=== PATIENT | female | born 1950 | race Caucasian/White ===

== ENCOUNTER → 2018-03-18 | Outpatient (CLI) | payer MEDICARE ==
[~2018-03-18] MED LIST: ACET325 PO; ACYC800 PO; ALBU90OI INH; ASCO500 PO; ATOR80 PO; Amaryl2 MG PO; FLUSAL1005 INH; Ferosul325 MG PO; LEVSOD75 PO; LISI20 PO; METO100ER PO; NIFE90ER PO; OMEPRAZOLE MAGN20 MG PO; PIOG30 PO; POTA10T PO; SERT100 PO; SULTRIDS PO
[2018-03-19 14:53] LABS: Stool Occult Bld Immuno 1 Negative (NEGATIVE); Stool Occult Bld Immuno 2 Positive (NEGATIVE)
== END | disposition home or self-care (01) ==
LOC: LAB EV 14:38
PROVIDERS: Internal Medicine Gastroenterology
DX: Z12.11 Encounter for screening for malignant neoplasm of colon (principal); K57.30 Diverticulosis of large intestine without perforation or abscess without bleeding
CPT/HCPCS: 82274

== ENCOUNTER → 2018-07-10 | Outpatient (CLI) | payer MEDICARE | LOC: LAB SHORT 16:12 → LAB 16:12 | DX: R30.0 Dysuria (principal) | CPT/HCPCS: 87086 ==

== ENCOUNTER → 2020-03-03 | Outpatient (CLI) | payer MEDICARE ==
[~2020-03-03] MED LIST changes: +ADALAT CC60 M1 PO; +ASPI81CH PO; +ATOR20 PO; +CALCIUM 600 +1 EA11 PO; +FAMO10 PO; +FISH OIL 1,2001 EAC4 PO; +FLUT1DIS2 INH; +LEVSOD100 PO; +METF500C PO; +METO50ER PO; +Norco 5-325 Ta1 EACH PO; +Prinivil10 MG PO; +THERA-D2000 UNIT PO; +TOPI25 PO; +ZYRTEC10 M2 PO
[2020-03-03 12:48] LABS: Bun/Creatinine Ratio 42.3 (12.0-20.0); Calcium, Blood 9.9 mg/dL (8.5-10.1); Creatinine, Blood 1.11 mg/dL (0.40-1.00); Potassium, Blood 4.6 mmol/L (3.5-5.5); Thyroid Stimulating Hormone 1.24 uIU/mL (0.360-4.800)
== END ==
LOC: LAB EV 11:48 → LAB SHORT 11:48
PROVIDERS: Family Medicine
DX: I12.9 Hypertensive chronic kidney disease with stage 1 through stage 4 chronic kidney disease, or unspecified chronic kidney disease (principal); N18.9 Chronic kidney disease, unspecified; E03.9 Hypothyroidism, unspecified
CPT/HCPCS: 36415; 80048; 84443

== ENCOUNTER → 2020-06-30 | Outpatient (CLI) | payer MEDICARE ==
[2020-06-30 16:50] LABS: BASOPHILS ABSOLUTE AUTO 0.02 K/mm3 (0.00-0.23); BASOPHILS PERCENT AUTO 0 % (0-2); EOSINOPHILS ABSOLUTE AUTO 0.06 K/mm3 (0.00-0.68); EOSINOPHILS PERCENT AUTO 1 % (0-6); Hematocrit 38.2 % (33.0-51.0); Hemoglobin 11.8 g/dL (11.5-16.0); IMMATURE GRAN ABSOLUTE AUTO 0.04 K/mm3 (0.00-0.10); IMMATURE GRAN PERCENT AUTO 1 % (0-1); LYMPHOCYTES ABSOLUTE AUTO 1.29 K/mm3 (0.84-5.20); LYMPHOCYTES PERCENT AUTO 15 % (21-46); MONOCYTES ABSOLUTE AUTO 0.47 K/mm3 (0.16-1.47); MONOCYTES PERCENT AUTO 6 % (4-13); Mean Corpuscular HGB 26.9 pg (26.0-34.0); Mean Corpuscular HGB Conc 30.9 g/dL (31.5-36.5); Mean Corpuscular Volume 87 fL (80-100); Mean Platelet Volume 10.8 fL (9.1-12.4); NEUTROPHILS ABSOLUTE AUTO 6.72 K/mm3 (1.96-9.15); NEUTROPHILS PERCENT AUTO 78 % (41-73); Platelet Count 238 K/mm3 (150-400); RDW Coefficient Variation 17.3 % (11.7-14.2); RDW Standard Deviation 55.3 fL (35.1-46.3); Red Blood Cell Count 4.39 M/mm3 (3.80-5.20)
[2020-06-30 17:04] LABS: Bun/Creatinine Ratio 25.2 (12.0-20.0); Calcium, Blood 9.2 mg/dL (8.5-10.1); Creatinine, Blood 1.51 mg/dL (0.40-1.00); Potassium, Blood 4.5 mmol/L (3.5-5.5)
== END ==
LOC: LAB SHORT 16:44 → LAB EV 16:44
PROVIDERS: Physician Assistant
DX: R53.83 Other fatigue (principal); R53.81 Other malaise; R11.2 Nausea with vomiting, unspecified
CPT/HCPCS: 80048; 85025

== ENCOUNTER 2020-08-04 15:58 | Observation (INO) | payer MEDICARE ==
[~2020-08-04] VITALS: Ht 160 cm; Wt 123.3 kg
[~2020-08-04 15:58] MED LIST changes: -ADALAT CC60 M1 PO; -ASPI81CH PO; -ATOR20 PO; -CALCIUM 600 +1 EA11 PO; -FAMO10 PO; -FISH OIL 1,2001 EAC4 PO; -FLUT1DIS2 INH; -LEVSOD100 PO; -METF500C PO; -METO50ER PO; -Norco 5-325 Ta1 EACH PO; -Prinivil10 MG PO; -THERA-D2000 UNIT PO; -TOPI25 PO; -ZYRTEC10 M2 PO
[2020-08-04 16:35] LABS: BASOPHILS ABSOLUTE AUTO 0.02 K/mm3 (0.00-0.23); BASOPHILS PERCENT AUTO 0 % (0-2); EOSINOPHILS ABSOLUTE AUTO 0.09 K/mm3 (0.00-0.68); EOSINOPHILS PERCENT AUTO 1 % (0-6); Hematocrit 40.1 % (33.0-51.0); Hemoglobin 12.1 g/dL (11.5-16.0); IMMATURE GRAN ABSOLUTE AUTO 0.07 K/mm3 (0.00-0.10); IMMATURE GRAN PERCENT AUTO 1 % (0-1); LYMPHOCYTES ABSOLUTE AUTO 1.34 K/mm3 (0.84-5.20); LYMPHOCYTES PERCENT AUTO 13 % (21-46); MONOCYTES ABSOLUTE AUTO 0.51 K/mm3 (0.16-1.47); MONOCYTES PERCENT AUTO 5 % (4-13); Mean Corpuscular HGB Conc 30.2 g/dL (31.5-36.5); Mean Corpuscular Volume 90 fL (80-100); Mean Platelet Volume 10.9 fL (9.1-12.4); NEUTROPHILS ABSOLUTE AUTO 8.04 K/mm3 (1.96-9.15); NEUTROPHILS PERCENT AUTO 80 % (41-73); Platelet Count 234 K/mm3 (150-400); RDW Coefficient Variation 16.7 % (11.7-14.2); RDW Standard Deviation 54.4 fL (35.1-46.3); Red Blood Cell Count 4.48 M/mm3 (3.80-5.20); White Blood Cell Count 10.07 K/mm3 (4.00-11.30)
[2020-08-04 16:49] LABS: Albumin, Blood 3.6 g/dL (3.4-5.0); Albumin/Globulin Ratio 0.9 (0.8-1.8); Bun/Creatinine Ratio 25.7 (12.0-20.0); Calcium, Blood 9.1 mg/dL (8.5-10.1); Creatinine, Blood 0.97 mg/dL (0.40-1.00); Potassium, Blood 3.9 mmol/L (3.5-5.5); Total Protein, Blood 7.6 g/dL (6.4-8.2)
[2020-08-04 18:14] LABS: Source, Urine Catheter
[2020-08-04 18:17] LABS: Appearance, Urine Hazy (Clear); Bilirubin, Urine Neg (Neg); Blood, Urine 5+ (Neg); Color, Urine Amber (P-Yellow); Glucose Qualitative, Urine Neg (Neg); Ketones, Urine 4+ (Neg); Leukocyte Esterase, Urine 1+ (Neg); Nitrite, Urine Neg (Neg); Protein, Urine 3+ (Neg); Urobilinogen, Urine NORM (Normal)
[2020-08-04 18:26] LABS: Bacteria Many /hpf; Red Blood Cells, Urine TNTC /hpf (0-2); Squamous Epithelial Cells Few /hpf (Few)
[2020-08-04] MEDS ORDERED: THERA-D2000 UNIT PO (18:30)
[2020-08-04] MEDS ORDERED: ALBU90OI INH (18:31)
[2020-08-04] MEDS ORDERED: ADALAT CC60 M1 PO (18:32)
[2020-08-04] MEDS ORDERED: CALCIUM 600 +1 EA11 PO (18:34)
[2020-08-04] MEDS ORDERED: ZYRTEC10 M2 PO (18:34)
[2020-08-04] MEDS ORDERED: Norco 5-325 Ta1 EACH PO (18:34)
[2020-08-04] MEDS ORDERED: ATOR20 PO (18:34)
[2020-08-04] MEDS ORDERED: LEVSOD100 PO (18:34)
[2020-08-04] MEDS ORDERED: FLUT1DIS2 INH (18:34)
[2020-08-04] MEDS ORDERED: Prinivil10 MG PO (18:35)
[2020-08-04] MEDS ORDERED: SERT100 PO (18:35)
[2020-08-04] MEDS ORDERED: ASPI81CH PO (18:35)
[2020-08-04] MEDS ORDERED: FISH OIL 1,2001 EAC4 PO (18:36)
[2020-08-04] MEDS ORDERED: FAMO10 PO (18:36)
[2020-08-04] MEDS ORDERED: TOPI25 PO (18:36)
[2020-08-04] MEDS ORDERED: ASCO500 PO (18:36)
[2020-08-04] MEDS ORDERED: METO50ER PO (18:36)
[2020-08-04] MEDS ORDERED: PIOG30 PO (18:36)
[2020-08-04] MEDS ORDERED: METF500C PO (18:37)
[2020-08-04 21:03] LABS: Thyroid Stimulating Hormone 2.87 uIU/mL (0.360-4.800)
[2020-08-05 05:54] LABS: BASOPHILS ABSOLUTE AUTO 0.03 K/mm3 (0.00-0.23); BASOPHILS PERCENT AUTO 0 % (0-2); EOSINOPHILS ABSOLUTE AUTO 0.22 K/mm3 (0.00-0.68); EOSINOPHILS PERCENT AUTO 3 % (0-6); Hematocrit 34.7 % (33.0-51.0); Hemoglobin 10.6 g/dL (11.5-16.0); IMMATURE GRAN ABSOLUTE AUTO 0.06 K/mm3 (0.00-0.10); IMMATURE GRAN PERCENT AUTO 1 % (0-1); LYMPHOCYTES ABSOLUTE AUTO 1.71 K/mm3 (0.84-5.20); LYMPHOCYTES PERCENT AUTO 20 % (21-46); MONOCYTES ABSOLUTE AUTO 0.61 K/mm3 (0.16-1.47); MONOCYTES PERCENT AUTO 7 % (4-13); Mean Corpuscular HGB Conc 30.5 g/dL (31.5-36.5); Mean Corpuscular Volume 88 fL (80-100); Mean Platelet Volume 11.8 fL (9.1-12.4); NEUTROPHILS ABSOLUTE AUTO 5.84 K/mm3 (1.96-9.15); NEUTROPHILS PERCENT AUTO 69 % (41-73); Platelet Count 217 K/mm3 (150-400); RDW Coefficient Variation 16.8 % (11.7-14.2); RDW Standard Deviation 54.3 fL (35.1-46.3); Red Blood Cell Count 3.93 M/mm3 (3.80-5.20); White Blood Cell Count 8.47 K/mm3 (4.00-11.30)
[2020-08-05 06:19] LABS: Anion Gap 12 mmol/L (6-16); Blood Urea Nitrogen 29 mg/dL (8-24); Bun/Creatinine Ratio 30.1 (12.0-20.0); CO2, Blood 25 mmol/L (21-32); Calcium, Blood 8.7 mg/dL (8.5-10.1); Chloride, Blood 103 mmol/L (98-108); Creatinine, Blood 0.97 mg/dL (0.40-1.00); Glomerular Filtration Rate >60 (60-); Glucose, Blood 111 mg/dL (70-99); Magnesium, Blood 1.8 mg/dL (1.6-2.4); Potassium, Blood 3.3 mmol/L (3.5-5.5); Sodium, Blood 140 mmol/L (136-145)
--- NOTE | 2020-08-05 06:50 | NUR ---
SHIFT SUMMARY PT WAS A NEW ADMIT DURING THE NIGHT, ARRIVING ON THE FLOOR AT 2215. SHE WAS ADMITTED FOR HYPOGLYCEMIA. SHE IS A&O X 4, 1PA TO THE BS. PT REPORTS THAT SHE HAS HAD INCREASED WEAKNESS AT HOME FOR THE PAST 2-3 DAYS, WITH MULTIPLE GLF. PT IS CURRENTLY Q2H BLOOD SUGARS, STABLE THOUGH NOT SUSTAINING ABOVE 100. NO C/O ACUTE PAIN, NAUSEA OR SOB. VITAL SIGNS STABLE. NO ACUTE CHANGES IN PT CONDITION NOTED SINCE ADMISSION. WILL CONTINUE TO MONITOR AND TREAT PER EMAR UNTIL HAND OFF TO DAY SHIFT RN.
[2020-08-05 12:39] LABS: IMMATURE RETIC FRACTION 14.4 % (2.3-16.0); RETIC HGB EQUIVALENT 31.4 pg (28.20-36.60); RETICULOCYTE ABSOLUTE 0.0693 M/mm3 (0.0200-0.1100); RETICULOCYTE COUNT PERCENT 1.8 % (0.50-2.50)
[2020-08-05 12:57] LABS: Percent Saturation 21.3 % (15.0-50.0)
--- NOTE | 2020-08-05 18:43 | NUR ---
SHIFT SUMMARY ANDREA GOT UP IN ROOM WITH AO1 WITH PT. SBA TO BSC. URINE RED, DR PATEL INFORMED. PT DENIES DYSURIA. IVF INITIATED, RENAL ULTRASOUND DONE, CREATININE KINASE ELEVATED AT 1090, DR NOGUEIRA INFORMED. NEW PIV STARTED. CBGS RANGED FROM 71-130, DR PATEL CHANGED TO CBG ACHS. PT AGREEABLE TO GO TO SNF AFTER HOSPITAL. GOT TYLENOL FOR HEADACHE, TOOK PILLS PRESCIBED, CALL LIGHT IN REACH, WCTM
--- NOTE | 2020-08-06 06:49 | NUR ---
SHIFT SUMMARY PT IS A 70 Y/O FEMALE, ADMITTED FOR HYPOGLYCEMIA. SHE IS A&O X 4, SBA TO THE [facility]. PT IS RECEIVING NS @ 75 ML/HR, AND WAS UP FREQUENTLY DURING THE NIGHT TO URINATE. PT DID C/O MILD R FLANK PAIN, BUT DID NOT REQUIRE PAIN MEDS. NO C/O NAUSEA OR SOB. VITAL SIGNS STABLE. NO ACUTE CHANGES IN PT CONDITION NOTED DURING THE NIGHT. WILL CONTINUE TO MONITOR AND TREAT PER EMAR UNTIL HAND OFF TO DAY SHIFT RN.
[2020-08-06 08:24] LABS: BASOPHILS ABSOLUTE AUTO 0.02 K/mm3 (0.00-0.23); BASOPHILS PERCENT AUTO 0 % (0-2); EOSINOPHILS ABSOLUTE AUTO 0.22 K/mm3 (0.00-0.68); EOSINOPHILS PERCENT AUTO 3 % (0-6); Hematocrit 36.8 % (33.0-51.0); Hemoglobin 11.5 g/dL (11.5-16.0); IMMATURE GRAN ABSOLUTE AUTO 0.05 K/mm3 (0.00-0.10); IMMATURE GRAN PERCENT AUTO 1 % (0-1); LYMPHOCYTES ABSOLUTE AUTO 1.66 K/mm3 (0.84-5.20); LYMPHOCYTES PERCENT AUTO 26 % (21-46); MONOCYTES ABSOLUTE AUTO 0.42 K/mm3 (0.16-1.47); MONOCYTES PERCENT AUTO 7 % (4-13); Mean Corpuscular HGB 27.5 pg (26.0-34.0); Mean Corpuscular HGB Conc 31.3 g/dL (31.5-36.5); Mean Corpuscular Volume 88 fL (80-100); Mean Platelet Volume 11.2 fL (9.1-12.4); NEUTROPHILS ABSOLUTE AUTO 4.12 K/mm3 (1.96-9.15); NEUTROPHILS PERCENT AUTO 63 % (41-73); Platelet Count 223 K/mm3 (150-400); RDW Coefficient Variation 16.7 % (11.7-14.2); RDW Standard Deviation 53.6 fL (35.1-46.3); Red Blood Cell Count 4.18 M/mm3 (3.80-5.20); White Blood Cell Count 6.49 K/mm3 (4.00-11.30)
[2020-08-06 08:40] LABS: Anion Gap 6 mmol/L (6-16); Blood Urea Nitrogen 20 mg/dL (8-24); Bun/Creatinine Ratio 22.8 (12.0-20.0); CO2, Blood 27 mmol/L (21-32); Calcium, Blood 8.9 mg/dL (8.5-10.1); Chloride, Blood 108 mmol/L (98-108); Creatinine, Blood 0.88 mg/dL (0.40-1.00); Glomerular Filtration Rate >60 (60-); Glucose, Blood 95 mg/dL (70-99); Potassium, Blood 3.9 mmol/L (3.5-5.5); Sodium, Blood 141 mmol/L (136-145)
[2020-08-06 16:44] LABS: Albumin/Globulin Ratio 0.8 (0.8-1.8); Bilirubin, Direct 0.1 mg/dL (0.0-0.3); Bilirubin, Indirect 0.3 mg/dL (0.1-0.7); Bilirubin, Total 0.4 mg/dL (0.1-1.0); Globulin, Blood 3.6 g/dL (2.2-4.0); Total Protein, Blood 6.6 g/dL (6.4-8.2)
--- NOTE | 2020-08-06 18:44 | NUR ---
SHIFT SUMMARY ANDREA STARTED COMPLAINING OF SEVERE L SIDE FLANK PAIN RADIATING TO HER FRONT, NAUSEOUS, DRY HEAVES. CT OF ABD SHOWED OBSTRUCTION IN URETER, SEVERE HYDRONEPHROSIS. DR PATEL INFORMED OF RESULTS, AWAITING UPDATE. UP TO BSC WITH SBA. BROTHER VISITED. MIVF RUNNING. BLADDER SCAN PVR SHOWED 0ML IN BLADDER. CALL LIGHT IN REACH, WCTM
--- NOTE | 2020-08-06 19:00 | NUR ---
DR PATEL TO BS, PT NEEDING TO TRANSFER TO [facility], PT AWARE
--- NOTE | 2020-08-06 20:42 | NUR ---
COBRA TRANSFER PT WAS TRANSFERED TO [facility] FOR R OBSTRUCTING KIDNEY STONE WITH HYDRONEPHROSIS. REPORT GIVEN TO LINETTE WU FOR ROOM 8135. PT WAS MEDICATED WITH OT DOSE OF 0.5 MG IV DILAUDID FOR FLANK PAIN PRIOR TO TRANSFER PER HOSPITALIST FLORESITA KNOTT. PT LEFT VIA AMBULANCE AT 2030.
== END 2020-08-06 20:29 | disposition short-term general hospital (02) ==
LOC: ER 15:58 → MEDS 20:51 → ERHOLD 20:51 → MEDS 22:37
PROVIDERS: Internal Medicine; Nurse Practitioner Acute Care; Physician Assistant; ADMIT Family Medicine
DX: E11.649 Type 2 diabetes mellitus with hypoglycemia without coma (principal); E11.22 Type 2 diabetes mellitus with diabetic chronic kidney disease; I12.9 Hypertensive chronic kidney disease with stage 1 through stage 4 chronic kidney disease, or unspecified chronic kidney disease; N18.30 Chronic kidney disease, stage 3 unspecified; D50.9 Iron deficiency anemia, unspecified; N13.2 Hydronephrosis with renal and ureteral calculous obstruction; R53.1 Weakness; F32.9 Major depressive disorder, single episode, unspecified; K21.9 Gastro-esophageal reflux disease without esophagitis; E87.6 Hypokalemia; E03.9 Hypothyroidism, unspecified; E66.01 Morbid (severe) obesity due to excess calories; J44.9 Chronic obstructive pulmonary disease, unspecified; E78.5 Hyperlipidemia, unspecified; Z87.891 Personal history of nicotine dependence; Z74.09 Other reduced mobility; Z68.42 Body mass index [BMI] 45.0-49.9, adult
CPT/HCPCS: 36415; 74177; 76770; 80048; 80053; 80076; 81001; 82550; 82607; 82728; 82746; 82947; 83540; 83550; 83690; 83735; 84443; 85025; 85045; 87086; 93005; 93010; 94640; 94760; 96372; 97110; 97162; 97530; 99285-25; A9270; G0378; J1170; J1650; J2270; J2405; J7030; Q9967

== ENCOUNTER 2023-03-03 07:54 | Day surgery (SDC) | payer MEDICARE ==
[~2023-03-03] VITALS: Ht 157.5 cm; Wt 125.0 kg
[~2023-03-03 07:54] MED LIST changes: +ADALAT CC60 M1 PO; +ASPI81CH PO; +ATOR20 PO; +Aldactone25 MG PO; +CALCIUM 600 +1 EA11 PO; +FAMO10 PO; +FISH OIL 1,2001 EAC4 PO; +FLUT1DIS2 INH; +LEVSOD100 PO; +METF500C PO; +METO50ER PO; +Norco 5-325 Ta1 EACH PO; +POTCIT10 PO; +Prinivil10 MG PO; +THERA-D2000 UNIT PO; +TOPI25 PO; +ZYRTEC10 M2 PO
[2023-03-03] MEDS ORDERED: CODACE30 (08:51)
[2023-03-03] MEDS ORDERED: FAMO20 (08:53)
[2023-03-03] MEDS ORDERED: CETI5 (08:53)
[2023-03-03] MEDS ORDERED: LOSA25 (08:54)
[2023-03-03] MEDS ORDERED: IRON18 MG (08:54)
[2023-03-03] MEDS ORDERED: FURO40 (08:54)
[2023-03-03] MEDS ORDERED: ZINC15 (08:54)
[2023-03-03] MEDS ORDERED: MONT10T (08:54)
[2023-03-03] MEDS ORDERED: GLUC500 (08:54)
[2023-03-03 11:13] VITALS: BP 115/65
== END 2023-03-03 11:13 | disposition home or self-care (01) ==
LOC: ORSCSDS 07:54 → ORD 10:00 → ORSCSDS 10:00 → ORD 10:15 → ORSCSDS 10:15
PROVIDERS: Internal Medicine Gastroenterology
PROC: 0DBM8ZX Excision of Descending Colon, Via Natural or Artificial Opening Endoscopic, Diagnostic (ICD-10-PCS; principal; 2023-03-03 10:00)
DX: Z12.11 Encounter for screening for malignant neoplasm of colon (principal); D12.4 Benign neoplasm of descending colon; K57.30 Diverticulosis of large intestine without perforation or abscess without bleeding; J44.9 Chronic obstructive pulmonary disease, unspecified; G47.30 Sleep apnea, unspecified; E11.22 Type 2 diabetes mellitus with diabetic chronic kidney disease; I12.9 Hypertensive chronic kidney disease with stage 1 through stage 4 chronic kidney disease, or unspecified chronic kidney disease; N18.30 Chronic kidney disease, stage 3 unspecified; Z87.891 Personal history of nicotine dependence; Z79.82 Long term (current) use of aspirin; Z79.84 Long term (current) use of oral hypoglycemic drugs; Z79.899 Other long term (current) drug therapy
CPT/HCPCS: 82947; 88305; J2704; J7120

== ENCOUNTER → 2023-05-19 | Outpatient (CLI) | payer MEDICARE, OTHER ==
[~2023-05-19] MED LIST changes: +CETI5; +CODACE30; +FAMO20; +FURO40; +GLUC500; +IRON18 MG; +LOSA25; +MONT10T; +ZINC15
[2023-05-19 09:52] LABS: BASOPHILS ABSOLUTE AUTO 0.02 K/mm3 (0.00-0.23); BASOPHILS PERCENT AUTO 0 % (0-2); EOSINOPHILS ABSOLUTE AUTO 0.14 K/mm3 (0.00-0.68); EOSINOPHILS PERCENT AUTO 2 % (0-6); Hematocrit 36.4 % (33.0-51.0); Hemoglobin 11.1 g/dL (11.5-16.0); IMMATURE GRAN ABSOLUTE AUTO 0.02 K/mm3 (0.00-0.10); IMMATURE GRAN PERCENT AUTO 0 % (0-1); LYMPHOCYTES ABSOLUTE AUTO 1.07 K/mm3 (0.84-5.20); LYMPHOCYTES PERCENT AUTO 19 % (21-46); MONOCYTES ABSOLUTE AUTO 0.34 K/mm3 (0.16-1.47); MONOCYTES PERCENT AUTO 6 % (4-13); Mean Corpuscular HGB 27.7 pg (26.0-34.0); Mean Corpuscular HGB Conc 30.5 g/dL (31.5-36.5); Mean Corpuscular Volume 91 fL (80-100); Mean Platelet Volume 11.3 fL (9.1-12.4); NEUTROPHILS ABSOLUTE AUTO 4.15 K/mm3 (1.96-9.15); NEUTROPHILS PERCENT AUTO 73 % (41-73); Platelet Count 149 K/mm3 (150-400); RDW Coefficient Variation 15.1 % (11.7-14.2); RDW Standard Deviation 49.4 fL (35.1-46.3); Red Blood Cell Count 4.01 M/mm3 (3.80-5.20); White Blood Cell Count 5.74 K/mm3 (4.00-11.30)
[2023-05-19 10:01] LABS: Albumin, Blood 3.5 g/dL (3.4-5.0); Albumin/Globulin Ratio 0.9 (0.8-1.8); Bilirubin, Total 0.8 mg/dL (0.1-1.0); Bun/Creatinine Ratio 26.2 (12.0-20.0); Calcium, Blood 8.7 mg/dL (8.5-10.1); Creatinine, Blood 1.22 mg/dL (0.40-1.00); Globulin, Blood 4.1 g/dL (2.2-4.0); Potassium, Blood 4.5 mmol/L (3.5-5.5); Total Protein, Blood 7.6 g/dL (6.4-8.2)
== END ==
LOC: LAB 09:47 → LAB SHORT 09:47
PROVIDERS: Physician Assistant Medical
DX: R10.30 Lower abdominal pain, unspecified (principal)
CPT/HCPCS: 80053; 85025

== ENCOUNTER → 2023-11-13 | Outpatient (CLI) | payer MEDICARE, OTHER ==
[2023-11-19 12:25] LABS: CALCIUM, URINE - PER 24H 64 mg/d (100-250); CALCIUM, URINE - PER VOLUME 5.8 mg/dL; CHLORIDE, URINE - PER 24H 172 mmol/d (140-250); CHLORIDE, URINE - PER VOLUME 156 mmol/L; CITRIC ACID, URINE - PER 24H 118 mg/d (320-1240); CITRIC ACID,URINE - PER VOLUME 107 mg/L; CREATININE, URINE - PER 24H 847 mg/d (500-1400); CREATININE, URINE - PER VOLUME 77 mg/dL; HOURS COLLECTED 24 hr; MAGNESIUM, URINE - PER VOLUME 6.6 mg/dL; MAGNESIUM, URINE PER 24H 73 mg/d (12-199); OXALATE, URINE - PER 24H 25 mg/d (13-40); OXALATE, URINE - PER VOLUME 23 mg/L; PH, URINE 5.67 (5.00-7.50); PHOSPHORUS, URINE - PER 24H 374 mg/d (400-1300); PHOSPHORUS, URINE - PER VOLUME 34 mg/dL; POTASSIUM, URINE - PER 24H 43 mmol/d (25-125); POTASSIUM, URINE - PER VOLUME 39 mmol/L; SODIUM, URINE - PER 24H 167 mmol/d (51-286); SODIUM, URINE - PER VOLUME 152 mmol/L; SULFATE, URINE - PER 24H 10 mmol/d (6-30); SULFATE, URINE - PER VOLUME 9 mmol/L; TOTAL VOLUME 1100 mL; URIC ACID, URINE - PER 24H 312 mg/d (250-750); URIC ACID, URINE - PER VOLUME 28.4 mg/dL; URINE SUPERSATURATION INTERP Normal; URINE SUPERSATURATION, CAHPO4 0.34; URINE SUPERSATURATION, CAOX 3.62; URINE SUPERSATURATION, UA CALC 0.75
== END | disposition home or self-care (01) ==
LOC: LAB SHORT 07:30 → LAB 07:30
PROVIDERS: Urology
DX: N20.0 Calculus of kidney (principal)
CPT/HCPCS: 81003; 82131; 82140; 82340; 82436; 82507; 82570; 83735; 83935; 83945; 84105; 84133; 84300; 84392; 84560

== ENCOUNTER → 2024-04-15 | Outpatient (CLI) | payer MEDICARE, OTHER ==
[2024-04-22 10:27] LABS: CALCIUM, URINE - PER 24H 28 mg/d (100-250); CALCIUM, URINE - PER VOLUME 1.1 mg/dL; CHLORIDE, URINE - PER 24H 275 mmol/d (140-250); CHLORIDE, URINE - PER VOLUME 110 mmol/L; CITRIC ACID, URINE - PER 24H 220 mg/d (320-1240); CITRIC ACID,URINE - PER VOLUME 88 mg/L; CREATININE, URINE - PER 24H 850 mg/d (500-1400); CREATININE, URINE - PER VOLUME 34 mg/dL; HOURS COLLECTED 24 hr; MAGNESIUM, URINE - PER VOLUME 3.3 mg/dL; MAGNESIUM, URINE PER 24H 82 mg/d (12-199); OXALATE, URINE - PER 24H 40 mg/d (13-40); OXALATE, URINE - PER VOLUME 16 mg/L; PH, URINE 7.36 (5.00-7.50); PHOSPHORUS, URINE - PER 24H 800 mg/d (400-1300); PHOSPHORUS, URINE - PER VOLUME 32 mg/dL; POTASSIUM, URINE - PER 24H 70 mmol/d (25-125); POTASSIUM, URINE - PER VOLUME 28 mmol/L; SODIUM, URINE - PER 24H 322 mmol/d (51-286); SODIUM, URINE - PER VOLUME 129 mmol/L; SULFATE, URINE - PER 24H < 5 mmol/d (6-30); SULFATE, URINE - PER VOLUME <5 mmol/L; TOTAL VOLUME 2500 mL; URIC ACID, URINE - PER 24H 510 mg/d (250-750); URIC ACID, URINE - PER VOLUME 20.4 mg/dL; URINE SUPERSATURATION INTERP Normal; URINE SUPERSATURATION, CAHPO4 0.46; URINE SUPERSATURATION, CAOX 0.63; URINE SUPERSATURATION, UA CALC 0.02
== END | disposition home or self-care (01) ==
LOC: LAB 07:00 → LAB SHORT 07:00 → LAB FUT 03-22 13:05
PROVIDERS: Nurse Practitioner Acute Care
DX: N20.0 Calculus of kidney (principal)
CPT/HCPCS: 81003; 82131; 82140; 82340; 82436; 82507; 82570; 83735; 83935; 83945; 84105; 84133; 84300; 84392; 84560

== ENCOUNTER 2024-09-21 09:07 | Inpatient (IN) | payer MEDICARE, OTHER ==
[~2024-09-21] VITALS: Ht 160 cm; Wt 123.4 kg
[~2024-09-21 09:07] MED LIST changes: -CODACE30; +CODACE30 PO; -FAMO20; +FAMO20 PO; -FURO40; +FURO40 PO
[2024-09-21 10:58] LABS: BASOPHILS ABSOLUTE AUTO 0.03 K/mm3 (0.00-0.23); BASOPHILS PERCENT AUTO 0 % (0-2); EOSINOPHILS ABSOLUTE AUTO 0.08 K/mm3 (0.00-0.68); EOSINOPHILS PERCENT AUTO 1 % (0-6); Hematocrit 40.6 % (33.0-51.0); IMMATURE GRAN ABSOLUTE AUTO 0.04 K/mm3 (0.00-0.10); IMMATURE GRAN PERCENT AUTO 1 % (0-1); LYMPHOCYTES ABSOLUTE AUTO 0.95 K/mm3 (0.84-5.20); LYMPHOCYTES PERCENT AUTO 11 % (21-46); MONOCYTES ABSOLUTE AUTO 0.47 K/mm3 (0.16-1.47); MONOCYTES PERCENT AUTO 5 % (4-13); Mean Corpuscular HGB 28.2 pg (26.0-34.0); Mean Corpuscular Volume 88 fL (80-100); NEUTROPHILS ABSOLUTE AUTO 7.26 K/mm3 (1.96-9.15); NEUTROPHILS PERCENT AUTO 82 % (41-73); Platelet Count 205 K/mm3 (150-400); RDW Coefficient Variation 15.2 % (11.7-14.2); RDW Standard Deviation 48.7 fL (35.1-46.3); Red Blood Cell Count 4.61 M/mm3 (3.80-5.20); White Blood Cell Count 8.83 K/mm3 (4.00-11.30)
[2024-09-21 11:05] LABS: Source, Urine Clean Catch
[2024-09-21] MEDS ORDERED: Ipratropium/Albuterol SulF 2.5-0.5MG/3 ML Amp INH ONE (11:10)
[2024-09-21 11:11] LABS: Appearance, Urine Clear (Clear); Bilirubin, Urine Neg (Neg); Blood, Urine Neg (Neg); Color, Urine Yellow (P-Yellow); Glucose Qualitative, Urine Neg (Neg); Ketones, Urine Neg (Neg); Leukocyte Esterase, Urine Neg (Neg); Nitrite, Urine Neg (Neg); Protein, Urine 1+ (Neg); Specific Gravity, Urine 1.015 (1.003-1.022); Urobilinogen, Urine NORM (Normal)
[2024-09-21 11:20] LABS: Albumin, Blood 3.8 g/dL (3.4-5.0); Albumin/Globulin Ratio 0.9 (0.8-1.8); Bilirubin, Total 1.2 mg/dL (0.1-1.0); Bun/Creatinine Ratio 21.4 (12.0-20.0); Calcium, Blood 9.3 mg/dL (8.5-10.1); Creatinine, Blood 1.31 mg/dL (0.40-1.00); Globulin, Blood 4.2 g/dL (2.2-4.0); Potassium, Blood 3.9 mmol/L (3.5-5.5)
[2024-09-21] MEDS ORDERED: Aspirin 325 MG Tab PO ONE ×2 (11:50→14:40)
[2024-09-21 15:55] LABS: Anti-Xa UFH, PHA Monitoring <0.10 IU/mL; International Normalized Ratio 1.11; Prothrombin Time Results 12.1 Sec (9.7-11.5)
[2024-09-21] MEDS ORDERED: Dose Adjust by Pharmacy XX STA ×2 (16:00→17:41)
[2024-09-21] MEDS ORDERED: Heparin Sodium,Porcine/0.5 NS 500 ML IV SCH (16:05)
[2024-09-21] MEDS ORDERED: Heparin Sodium 5000 Units/ML 1ML MDV IV ONE ×2 (16:05→17:45)
[2024-09-21 16:09] LABS: CHOL/HDL RATIO 2.1; Cholesterol 125 mg/dL (50-200); HDL Cholesterol 60 mg/dL (>39); LDL/HDL RATIO 0.9; Low Density Lipoprotein Chol 52 mg/dL (0-110); Triglycerides 63 mg/dL (30-160); Very Low Density Lipoprot Chol 12 mg/dL (6-32)
[2024-09-21] MEDS ORDERED: Insulin Regular 100 UNIT/ML 10ML Vial SC SCH (16:30)
[2024-09-21 17:16] LABS: Influenza A, PCR NEGATIVE (NEGATIVE); Influenza B, PCR NEGATIVE (NEGATIVE); Resp Syncytial Virus, PCR NEGATIVE (NEGATIVE); SARS-Cov-2 (COVID-19) PCR, MMC NEGATIVE (NEGATIVE)
[2024-09-21 18:19] VITALS: BP 99/67
[2024-09-21] MEDS ORDERED: ACYC800 PO (18:43)
[2024-09-21] MEDS ORDERED: METO25ER PO (18:46)
[2024-09-21] MEDS ORDERED: HAIR, SKIN AND1 EAC3 PO (18:51)
[2024-09-21] MEDS ORDERED: MULVITA PO (18:52)
--- NOTE | 2024-09-21 18:54 | NUR ---
BEFORE ARRIVING TO THE UNIT: ABOUT 1720, THIS RN BEGAN TO LOOK UP THE PT TO ADMIT TO PCU. WHEN REVIEWING THE PT'S CHART THIS RN NOTICED THAT A HEPARIN GTT WAS STARTED ON THE PT IN THE ER, BUT THE BOLUS DOSE TO BE GIVEN WITH THE HEPARIN INF WAS NOT GIVEN. ALSO, THIS RN SAW AN ELEVATED D-DIMER OF 8.3 AND TROP OF 813 W/ NO ADDITONAL ORDERS TO TREND OR NOTES/ORDERS ADRESSING THE D-DIMER (TROP HAD NOT PEAKED). AFTER SEEING THIS, THIS RN CALLED THE ER NURSE RAUL HANNAH. THE NURSE STATED THAT SHE DID NOT KNOW ABOUT THE D-DIMER AND IT WAS NOT ADDRESSED. ALSO, THIS RN TOLD THE ER NURSE THAT THE BOLUS DOSE OF HEPARIN WAS NOT GIVEN TO THE PT WHEN THE GTT WAS STARTED. ORIGINAL HEPARIN BOLUS ORDERED FOR 160. THE ER NURSE WAS NOT AWARE OF THE BOLUS DOSE, THIS RN TOLD THE ER NURSE TO CALL PHARMACY ABOUT THE BOLUS DOSE BEORE THEY GIVE IT. WHILE THE ER NURSE WAS CALLING PHARMACY, THIS RN CALLED DR. CH ABOUT THE D-DIMER AND TROP . CT-PE STUDY ORDERED AND TROP ORDERED FOR 1900. CT-PE STUDY COMPLETED BEFORE PT ARRIVING TO THE UNIT. PT ADMISSION: PT ARRIVED VIA [facility] WITH HEPARIN GTT INFUSING ABOUT 1815 THE PT WAS ABLE TO TRANSFER HERSELF FROM [facility] TO BED WITH MINIMAL ASSISTANCE.PLAN TO TRADE ER PUMP FOR PCU PUMP SINCE HEPARIN WAS INFUSING. WHILE THE PT WAS TRANSFERING, THE ER NURSE MILADIS FORGOT ABOUT HE PLAN TO TRADE PUMPS, MILADIS SUE TOOK THE PT'S HEPARIN GTT TUBING OUT OF THE ER PUMP AND HANDED IT OVER OT THIS RN TO PLACE IN THE PCU PUMP. WHEN THIS RN RECIEVED THE TUBING, THIS RN IMMEDIATELY NOTICED THE TUBING WAS UNCLAMPED AND THE PT WAS RECIEVING THE HEPARIN VIA GRAVITY. THIS RN IMEDIATELY CLAMPED THE TUBING AND PROGRAMED IT INTO THE PUMP PER PHARMACY ORDERS W/ FRANCHESCA F RN TO VERIFY THE PUMP. AFTER SETTLING THE PT AND GETTING VITALS, THIS RN CALLED PHARMACY AND NOTIFIED THEM OF WHAT HAPPENED AND THAT THE HEPARIN WAS RUNNING PER GRAVITY FOR AN UNDETERMINAL AMOUNT OF TIME. DR. CH AND BINDERY WORKER'S INFORMED WELL. WHILE AT THE DESK AND TALKING TO PHARMACY, THE RADIOLOGIST CALLED AND NOTIFIED THIS RN OF ABNORMAL ECHO. BINDERY WORKER JERARDO CALLED DR. YANG WITH RESULTS, AND THIS RN CALLED DR. CH. PT WILL BE NPO AT 0000. ON TELE SHE IS SR AND BP IS SOFT BUT STABLE. SHE IS ON RA W/ SP02 >93%. THE PT STATES SHE SHE HAS BEEN HAVING TWO WEEKS OF SOB, LEG SWELLIING, AND BACK PAIN PRIOR TO COMING INTO THE ED. HER SON IS AT BEDSIDE AND WAS UPDATED ON CARE. CARE HANDED OFF TO MAVERICK SUE.
[2024-09-21 20:52] VITALS: BP 124/50
[2024-09-21] MEDS ORDERED: Montelukast Sodium 10 MG Tab PO SCH (22:00)
[2024-09-21] MEDS ORDERED: Loratadine 10 MG Tab PO SCH (22:15)
[2024-09-21 23:32] VITALS: BP 154/79
[2024-09-22 00:36] LABS: BASOPHILS ABSOLUTE AUTO 0.02 K/mm3 (0.00-0.23); BASOPHILS PERCENT AUTO 0 % (0-2); EOSINOPHILS ABSOLUTE AUTO 0.12 K/mm3 (0.00-0.68); EOSINOPHILS PERCENT AUTO 2 % (0-6); Hematocrit 36.7 % (33.0-51.0); Hemoglobin 11.5 g/dL (11.5-16.0); IMMATURE GRAN ABSOLUTE AUTO 0.03 K/mm3 (0.00-0.10); IMMATURE GRAN PERCENT AUTO 0 % (0-1); LYMPHOCYTES ABSOLUTE AUTO 1.45 K/mm3 (0.84-5.20); LYMPHOCYTES PERCENT AUTO 21 % (21-46); MONOCYTES ABSOLUTE AUTO 0.42 K/mm3 (0.16-1.47); MONOCYTES PERCENT AUTO 6 % (4-13); Mean Corpuscular HGB 27.9 pg (26.0-34.0); Mean Corpuscular HGB Conc 31.3 g/dL (31.5-36.5); Mean Corpuscular Volume 89 fL (80-100); Mean Platelet Volume 10.7 fL (9.1-12.4); NEUTROPHILS ABSOLUTE AUTO 4.93 K/mm3 (1.96-9.15); NEUTROPHILS PERCENT AUTO 71 % (41-73); Platelet Count 176 K/mm3 (150-400); RDW Coefficient Variation 15.4 % (11.7-14.2); RDW Standard Deviation 49.7 fL (35.1-46.3); Red Blood Cell Count 4.12 M/mm3 (3.80-5.20); White Blood Cell Count 6.97 K/mm3 (4.00-11.30)
[2024-09-22] MEDS ORDERED: Dose Adjust by Pharmacy XX STA (01:43)
[2024-09-22 01:44] LABS: Bun/Creatinine Ratio 25.2 (12.0-20.0); Calcium, Blood 8.2 mg/dL (8.5-10.1); Creatinine, Blood 1.23 mg/dL (0.40-1.00); Potassium, Blood 3.7 mmol/L (3.5-5.5)
[2024-09-22 03:40] VITALS: BP 142/92
--- NOTE | 2024-09-22 05:13 | NUR ---
SHIFT SUMMARY PT AX0 X 4. PT REQUIRED 2L NC OVERNIGHT. PT HAS HX OF SLEEP APNEA BUT DOES NOT WEAR A CPAP/BIPAP. PT WITH ADEQUATE URINE OUTPUT. PT HR 70S IN SR. PT DENIES C/P. VSS. CALL MCCANN IN REACH AND PT ABLE TO MAKE NEEDS KNOWN.
[2024-09-22 07:42] VITALS: BP 119/66
[2024-09-22] MEDS ORDERED: Loratadine 10 MG Tab PO SCH (09:00)
[2024-09-22] MEDS ORDERED: Atorvastatin 40 MG Tab PO SCH (09:00)
[2024-09-22] MEDS ORDERED: Aspirin 81 MG Chew PO SCH (09:00)
--- NOTE | 2024-09-22 10:04 | NUR ---
CALLED TO SPEAK WITH DR. HEIN TO TOUCH BASE REGARDING POSSIBLE IVC FILTER PLACEMENT. PER DR. HEIN, NO NEED FOR IVC FILTER AT THIS TIME GIVEN WE DO NOT DEFINITIVELY KNOW WHETHER OR NOT PT HAS DVTs. OKAY FOR PT TO EAT. CALLED DR. CH WHO ORDERED DUPLEX OF LEGS TO ASSESS FOR POSSIBLE DVTs AND TO ALLOW PT TO EAT ON CARDIAC DIET. ORDERS INPUT. CONTINUING TO MONITOR.
[2024-09-22 11:59] VITALS: BP 118/57
[2024-09-22] MEDS ORDERED: Formoterol/Mometasone MDI 5/100 mcg 13 GM INH SCH (15:20)
[2024-09-22] MEDS ORDERED: Albuterol 2.5 MG/3 ML VIAL INH PRN (15:20)
[2024-09-22 15:39] VITALS: BP 136/79
--- NOTE | 2024-09-22 17:10 | NUR ---
SHIFT SUMMARY. SHIFT HAS BEEN UNREMARKABLE. PT AOX4, PLEASANT, COOPERATIVE WITH CARE, ABLE TO MAKE NEEDS KNOWN. HAS DENIED PAIN THROUGHOUT SHIFT. VITALS HAVE BEEN STABLE. RUNNING SINUS ON TELE. O2 DEMANDS HAVE FLUCTUATED BETWEEN ROOM AIR AND 3 L O2 THROUGHOUT SHIFT. DENIES SHORTNESS OF BREATH OUTSIDE OF DYSPNEA WITH EXERTION. ECHO AND BLE DOPPLER COMPLETED THIS MORNING. HEPARIN HAS BEEN RUNNING THROUGHOUT SHIFT, RATE CONSISTENT. PT ON HEART HEALTHY DIET. SHIFT OTHERWISE UNREMARKABLE. BED LOCKED IN LOWEST POSITION. CALL LIGHT LEFT WTIHIN REACH. CONTINUING TO MONITOR.
[2024-09-22 19:58] VITALS: BP 114/54
[2024-09-22] MEDS ORDERED: HyDROXyzine HCl 25 MG Tab PO PRN (20:15)
[2024-09-22] MEDS ORDERED: CETIRIZINE 10 MG PO SCH (21:00)
[2024-09-22] MEDS ORDERED: Multivitamins 1 Tab PO SCH (21:00)
[2024-09-22 23:24] VITALS: BP 120/59
[2024-09-23 03:06] LABS: BASOPHILS ABSOLUTE AUTO 0.03 K/mm3 (0.00-0.23); BASOPHILS PERCENT AUTO 0 % (0-2); EOSINOPHILS ABSOLUTE AUTO 0.24 K/mm3 (0.00-0.68); EOSINOPHILS PERCENT AUTO 3 % (0-6); Hematocrit 35.8 % (33.0-51.0); IMMATURE GRAN ABSOLUTE AUTO 0.03 K/mm3 (0.00-0.10); IMMATURE GRAN PERCENT AUTO 0 % (0-1); LYMPHOCYTES PERCENT AUTO 20 % (21-46); MONOCYTES ABSOLUTE AUTO 0.46 K/mm3 (0.16-1.47); MONOCYTES PERCENT AUTO 7 % (4-13); Mean Corpuscular HGB 27.6 pg (26.0-34.0); Mean Corpuscular HGB Conc 30.7 g/dL (31.5-36.5); Mean Corpuscular Volume 90 fL (80-100); Mean Platelet Volume 10.9 fL (9.1-12.4); NEUTROPHILS ABSOLUTE AUTO 4.84 K/mm3 (1.96-9.15); NEUTROPHILS PERCENT AUTO 69 % (41-73); Platelet Count 169 K/mm3 (150-400); RDW Coefficient Variation 15.3 % (11.7-14.2); RDW Standard Deviation 50.6 fL (35.1-46.3); Red Blood Cell Count 3.98 M/mm3 (3.80-5.20)
[2024-09-23 03:20] LABS: Bun/Creatinine Ratio 23.1 (12.0-20.0); Calcium, Blood 8.1 mg/dL (8.5-10.1); Creatinine, Blood 1.21 mg/dL (0.40-1.00); Potassium, Blood 3.7 mmol/L (3.5-5.5)
[2024-09-23 03:30] VITALS: BP 125/66
[2024-09-23] MEDS ORDERED: Dose Adjust by Pharmacy XX STA (03:34)
--- NOTE | 2024-09-23 05:24 | NUR ---
SHIFT SUMMARY PT DID WELL OVERNIGHT. AXO X 4. DENIES PAIN. HEPARIN GTT INFUSING AT THERAPEUTIC RATE. ADEQUATE URINE OUTPUT. PT MAINTAINS O2 SATS ABOVE 90% ON 2.5L NC. PT DENIES SOB WITH AMBULATION. PT SINS RYHTHM WITH BBB HR 70S. DENIES C/P. PT UP WITH 1 ASSIST. PT ABLE TO MAKE NEEDS KNOWN. CALL MCCANN WITHIN REACH.
[2024-09-23] MEDS ORDERED: Levothyroxine Sodium 0.1 MG Tab PO SCH (06:00)
[2024-09-23 08:12] VITALS: BP 127/56
[2024-09-23] MEDS ORDERED: Sertraline HCl 100 MG Tab PO SCH (09:00)
[2024-09-23] MEDS ORDERED: Cholecalciferol 1000 Unit Tablet (=25MCG) PO SCH (09:00)
[2024-09-23] MEDS ORDERED: Lidocaine 4% 1 Patch TOP SCH (09:00)
[2024-09-23] MEDS ORDERED: Omega-3 Acid Ethyl Esters 1,000 MG CAP PO SCH (09:00)
[2024-09-23] MEDS ORDERED: Famotidine 20 MG Tab PO SCH (09:00)
[2024-09-23] MEDS ORDERED: Apixaban 5 MG Tab PO SCH (09:30)
--- NOTE | 2024-09-23 10:15 | NUR ---
am note this rn assumed care at 0700. vital signs stable. tele sinus rhythm 70s-80s. spo2 >90% on 2l nc. patient is alert and oriented x4. neruo is intact. perrla. patient is able to make needs known and uses call light appropriately. patient denies pain or chest pain/pressure. patient becomes short of breath with exertion. patient lung sounds tight and dim throughout. see shift assessment for further detials. Betsy in to see patient and plan to go home today. Heparin drip stopped and started on oral anticoagulant, eliquis. patient educated on this medication and rationale for taking. home oxygen eval in place and awaiting to be done. plan of care is up to date
[2024-09-23] MEDS ORDERED: ELIQUIS5 M2 PO (12:16)
[2024-09-23 14:27] VITALS: BP 112/53
--- NOTE | 2024-09-23 14:31 | NUR ---
discharge instructions this rn went over follow up appointments, new medications, and medications to stop. patient verbalized understanding. this rn went over pulmonary embolism and dvt with patient and provided printed hand out. patient awaiting for ride at this time whom plan to be here at 1500.
--- NOTE | 2024-09-23 15:09 | NUR ---
final discharge patient left with all belongings and in no distress.
== END 2024-09-23 15:10 | disposition home or self-care (01) | DRG 175 ==
LOC: ER 09:07 → PCU 15:00
PROVIDERS: Emergency Medicine; ADMIT Family Medicine
PROC: 5A09357 Assistance with Respiratory Ventilation, Less than 24 Consecutive Hours, Continuous Positive Airway Pressure (ICD-10-PCS; principal; 2024-09-21)
DX: I26.09 Other pulmonary embolism with acute cor pulmonale (principal); I82.441 Acute embolism and thrombosis of right tibial vein; I24.89 Other forms of acute ischemic heart disease; N18.30 Chronic kidney disease, stage 3 unspecified; E11.22 Type 2 diabetes mellitus with diabetic chronic kidney disease; I12.9 Hypertensive chronic kidney disease with stage 1 through stage 4 chronic kidney disease, or unspecified chronic kidney disease; J44.89 Other specified chronic obstructive pulmonary disease; E03.9 Hypothyroidism, unspecified; E78.5 Hyperlipidemia, unspecified; K21.9 Gastro-esophageal reflux disease without esophagitis; M17.9 Osteoarthritis of knee, unspecified; G47.30 Sleep apnea, unspecified; R60.0 Localized edema; Z72.3 Lack of physical exercise; Z85.828 Personal history of other malignant neoplasm of skin; Z79.890 Hormone replacement therapy; Z79.51 Long term (current) use of inhaled steroids; Z79.84 Long term (current) use of oral hypoglycemic drugs; Z79.1 Long term (current) use of non-steroidal anti-inflammatories (NSAID); Z87.891 Personal history of nicotine dependence; Z88.8 Allergy status to other drugs, medicaments and biological substances
CPT/HCPCS: 0241U; 36415; 71046; 71260; 80048; 80053; 80061; 82947; 83880; 84443; 84484; 85025; 85379; 85520; 85610; 85730; 93005; 93010; 93306; 93970; 94640; 94660; 94664; 94761; 94762; 99285-25; A9270; J1644; J1815; Q9967